=== PATIENT | female | born 1955 | race Hispanic/Latino ===

== ENCOUNTER 2018-01-19 12:27 | Inpatient (IN) | payer SELFPAY ==
[~2018-01-19] VITALS: Ht 160 cm; Wt 109.3 kg
[2018-01-19 13:16] LABS: HEMATOCRIT 33.5 % (36.0-46.0); HEMOGLOBIN 10.1 G/DL (11.9-15.5); MCH 21.8 PG (29.0-34.0); MCHC 30.1 G/DL (30.0-36.0); MCV 72.2 FL (83-99); PLATELET COUNT 595 K/uL (156-360); RBC DIS.WIDTH-SD 43.8 % (39-53); RED BLOOD COUNT 4.64 M/uL (3.80-5.20); WHITE BLOOD COUNT 10.2 K/uL (4.1-10.2)
[2018-01-19 13:22] LABS: CHLORIDE 101 mEq/L (99-109); POTASSIUM 3.9 mEq/L (3.7-5.4); SODIUM 138 mEq/L (136-147)
[2018-01-19 13:24] LABS: GLUCOSE 294 mg/dL (70-99)
[2018-01-19 13:28] LABS: CREATININE 0.8 mg/dL (0.6-1.3); GFR ESTIMATE (CALCULATED) > 59 mL/min/; UREA NITROGEN (BUN) 17 mg/dL (9-23)
[2018-01-19 13:32] LABS: TROP-I INTERPRETATION NEGATIVE; TROPONIN-I < 0.01 ng/mL (0.0-0.30)
[2018-01-19 16:08] LABS: TROP-I INTERPRETATION NEGATIVE; TROPONIN-I < 0.01 ng/mL (0.0-0.30)
[2018-01-19] MEDS ORDERED: VITAMIN E400 UNIT PO (17:50)
[2018-01-19] MEDS ORDERED: VITAMIN B-121000 MC3 PO (17:51)
[2018-01-19] MEDS ORDERED: VITAMIN D31000 UNI2 PO (17:51)
[2018-01-19] MEDS ORDERED: ASCORBIC ACID500 M3 PO (17:51)
[2018-01-19] MEDS ORDERED: VITAMIN A10000 UNIT PO (17:52)
[2018-01-19] MEDS ORDERED: GLUCOSAMINE &1 EAC1 PO (17:52)
[2018-01-19] MEDS ORDERED: EXCEDRIN MIGRA1 EAC3 PO (17:53)
[2018-01-19] MEDS ORDERED: OMEGA-31000 M1 PO (17:53)
[2018-01-19] MEDS ORDERED: ADVAIR HFA120 INHAL2 IH (17:53)
[2018-01-19] MEDS ORDERED: NEOSPORIN + P28.3 GM TP (17:54)
[2018-01-19] MEDS ORDERED: ADVIL200 MG PO (17:54)
[2018-01-19] MEDS ORDERED: EMETROL ORAL S236 ML PO (17:55)
[2018-01-19] MEDS ORDERED: ZANTAC150 MG PO (17:55)
[2018-01-19] MEDS ORDERED: GLUCOPHAGE500 MG PO (17:56)
[2018-01-19] MEDS ORDERED: TRESIBA FL100 UNIT/1 SC (17:56)
[2018-01-19] MEDS ORDERED: COZAAR50 MG PO (17:56)
[2018-01-19] MEDS ORDERED: SPIRIVA1 INHALATI IH (17:57)
[2018-01-19] MEDS ORDERED: GLUCOTROL5 MG PO (17:57)
[2018-01-19] MEDS ORDERED: DULERA 100 MCG/13 GM IH (17:57)
[2018-01-19] MEDS ORDERED: VENTOLIN HFA18 GM IH (17:57)
[2018-01-19] MEDS ORDERED: BENGAY GREASELE57 GM TP (17:58)
[2018-01-19] MEDS ORDERED: SALONPAS PATCH1 EAC1 TD (17:58)
[2018-01-19] MEDS ORDERED: CLARITIN,ALAVAR10 MG PO (17:59)
[2018-01-19 18:52] LABS: ALBUMIN 3.2 g/dL (3.2-4.8)
[2018-01-19 18:55] LABS: TOTAL PROTEIN 6.2 g/dL (6.4-8.3)
[2018-01-19 18:57] LABS: TOTAL BILIRUBIN 0.3 mg/dL (0.0-1.0)
[2018-01-19 18:58] LABS: ALKALINE PHOSPHATASE 69 IU/L (3-129)
[2018-01-19 19:00] LABS: AST (GOT) 13 IU/L (2-34); DIRECT BILIRUBIN 0.2 mg/dL (0.0-0.3)
[2018-01-19 19:01] LABS: ALT (GPT) 3 IU/L (3-49)
[2018-01-19 19:10] LABS: APPEARANCE CLEAR ((CLEAR)); BILIRUBIN NEGATIVE; BLOOD NEGATIVE; COLOR YELLOW ((YELLOW)); GLUCOSE (STRIP) >=500; KETONES NEGATIVE; LEUKOCYTES SMALL; NITRITE NEGATIVE; PROTEIN (STRIP) 30; SPECIFIC GRAVITY 1.021 (1.000-1.030); UROBILINOGEN 0.2 MG/DL (0.2-1.0)
[2018-01-19 19:15] LABS: BACTERIA NONE SEEN /HPF; EPITHELIAL CELLS RARE /HPF; MUCUS TRACE /LPF; RED BLOOD CELLS 0-5 /HPF (0-5); UCUL ADDED? YES
[2018-01-19 22:09] VITALS: BP 148/84
[2018-01-19 22:31] LABS: TROP-I INTERPRETATION NEGATIVE; TROPONIN-I < 0.01 ng/mL (0.0-0.30)
[2018-01-19 22:35] LABS: IRON 17 MCG/DL (35-150); TRANSFERRIN (TIBC) 303.9 mg/dL (215-380); TRANSFERRIN SATUR. 6 % (20-55)
[2018-01-19 22:53] LABS: FERRITIN 7 NG/ML (10-291)
[2018-01-19 23:46] VITALS: BP 149/83
[2018-01-20 04:17] VITALS: BP 142/69
[2018-01-20 07:08] LABS: HEMATOCRIT 29.9 % (36.0-46.0); HEMOGLOBIN 8.6 G/DL (11.9-15.5); MCH 21.4 PG (29.0-34.0); MCHC 28.8 G/DL (30.0-36.0); MCV 74.6 FL (83-99); PLATELET COUNT 490 K/uL (156-360); RBC DIS.WIDTH-SD 45.7 % (39-53); RED BLOOD COUNT 4.01 M/uL (3.80-5.20); WHITE BLOOD COUNT 7.1 K/uL (4.1-10.2)
[2018-01-20 07:24] LABS: TROP-I INTERPRETATION NEGATIVE; TROPONIN-I < 0.01 ng/mL (0.0-0.30)
[2018-01-20 07:30] LABS: CHLORIDE 107 MEQ/L (99-109); CREATININE 0.6 MG/DL (0.6-1.3); GFR ESTIMATE (CALCULATED) > 59 mL/min/; GLUCOSE 279 mg/dL (70-99); SODIUM 141 MEQ/L (136-147); UREA NITROGEN (BUN) 13 mg/dL (9-23)
[2018-01-20 08:00] VITALS: BP 124/61
[2018-01-20 12:00] VITALS: BP 146/77
[2018-01-20 16:02] VITALS: BP 160/84
[2018-01-20 20:10] VITALS: BP 154/78
[2018-01-20 23:55] VITALS: BP 123/67
[2018-01-21 03:27] VITALS: BP 137/77
[2018-01-21 06:27] LABS: HEMATOCRIT 27.8 % (36.0-46.0); MCH 20.9 PG (29.0-34.0); MCHC 28.8 G/DL (30.0-36.0); MCV 72.8 FL (83-99); PLATELET COUNT 439 K/uL (156-360); RBC DIS.WIDTH-CV 16.7 % (11.8-14.6); RED BLOOD COUNT 3.82 M/uL (3.80-5.20); WHITE BLOOD COUNT 6.3 K/uL (4.1-10.2)
[2018-01-21 07:00] VITALS: BP 112/90
[2018-01-21] MEDS ORDERED: FERROUS SULFAT325 MG PO (08:07)
[2018-01-21] MEDS ORDERED: CEFDINIR300 MG PO (08:10)
[2018-01-21 10:17] LABS: STOOL OCCULT BLD 1ST SPECIMEN POSITIVE
[2018-01-21 11:10] VITALS: BP 136/90
[2018-01-21 12:02] LABS: HEMATOCRIT 28.2 % (36.0-46.0); HEMOGLOBIN 8.3 G/DL (11.9-15.5); MCV 73.2 FL (83-99)
[2018-01-21 15:56] VITALS: BP 151/66
== END 2018-01-21 18:34 | disposition home or self-care (01) | DRG 871 ==
LOC: EME 12:27 → 5SOUTH 19:48 → EDOF 19:48 → ENRESERV 19:49 → 5SOUTH 21:38 → ENRESERV 01-20 03:16 → CANRESERV 01-20 03:16 → 5SOUTH 01-21 18:34
PROVIDERS: Hospitalist; Nurse Practitioner Family; Physician Assistant Medical
DX: A41.9 Sepsis, unspecified organism (principal); R65.20 Severe sepsis without septic shock; J18.9 Pneumonia, unspecified organism; E86.0 Dehydration; E87.2 Acidosis; D50.9 Iron deficiency anemia, unspecified; E11.9 Type 2 diabetes mellitus without complications; E66.01 Morbid (severe) obesity due to excess calories; I10 Essential (primary) hypertension; G89.29 Other chronic pain; M48.00 Spinal stenosis, site unspecified; F32.9 Major depressive disorder, single episode, unspecified; Z68.41 Body mass index [BMI] 40.0-44.9, adult; Z87.891 Personal history of nicotine dependence; Z23 Encounter for immunization
CPT/HCPCS: 71046; 71275; 74177; 80048; 80076; 81003; 82272; 82607; 82728; 82948; 83540; 83605; 84466; 84484; 85014; 85018; 85027; 87040; 87086; 87502; 90686; 93005; 94640; 94640 76; 99202; 99281; 99285; J0696; J1644; J1815; J1885; J7030

== ENCOUNTER → 2018-03-31 | Outpatient (CLI) | payer OTHER ==
[~2018-03-31] VITALS: Ht 160 cm; Wt 104.8 kg
[~2018-03-31] MED LIST: ADVAIR HFA120 INHAL2 IH; ADVIL200 MG PO; ASCORBIC ACID500 M3 PO; BENGAY GREASELE57 GM TP; CEFDINIR300 MG PO; CLARITIN,ALAVAR10 MG PO; COZAAR50 MG PO; DULERA 100 MCG/13 GM IH; EMETROL ORAL S236 ML PO; EXCEDRIN MIGRA1 EAC3 PO; FERROUS SULFAT325 MG PO; GLUCOPHAGE500 MG PO; GLUCOSAMINE &1 EAC1 PO; GLUCOTROL5 MG PO; NEOSPORIN + P28.3 GM TP; OMEGA-31000 M1 PO; SALONPAS PATCH1 EAC1 TD; SPIRIVA1 INHALATI IH; TRESIBA FL100 UNIT/1 SC; VENTOLIN HFA18 GM IH; VITAMIN A10000 UNIT PO; VITAMIN B-121000 MC3 PO; VITAMIN D31000 UNI2 PO; VITAMIN E400 UNIT PO; ZANTAC150 MG PO
== END | disposition home or self-care (01) ==
LOC: AMB 07:52
PROVIDERS: Internal Medicine Gastroenterology
DX: Z12.11 Encounter for screening for malignant neoplasm of colon (principal); C18.7 Malignant neoplasm of sigmoid colon; D12.2 Benign neoplasm of ascending colon; D12.0 Benign neoplasm of cecum; K64.4 Residual hemorrhoidal skin tags; K64.8 Other hemorrhoids; K44.9 Diaphragmatic hernia without obstruction or gangrene; K20.9 Esophagitis, unspecified; K29.70 Gastritis, unspecified, without bleeding; R10.13 Epigastric pain; E11.9 Type 2 diabetes mellitus without complications; I10 Essential (primary) hypertension; Z83.3 Family history of diabetes mellitus; Z87.891 Personal history of nicotine dependence
CPT/HCPCS: 82948; 88305; 88342 TC; J1200; J3010

== ENCOUNTER → 2018-04-26 | Outpatient (CLI) | payer OTHER | END | disposition home or self-care (01) | LOC: RAD 08:24 | DX: K76.0 Fatty (change of) liver, not elsewhere classified (principal); R16.0 Hepatomegaly, not elsewhere classified; N63.14 Unspecified lump in the right breast, lower inner quadrant; I25.10 Atherosclerotic heart disease of native coronary artery without angina pectoris; I70.0 Atherosclerosis of aorta; N28.9 Disorder of kidney and ureter, unspecified; M51.36 Other intervertebral disc degeneration, lumbar region; Q43.3 Congenital malformations of intestinal fixation; Z90.49 Acquired absence of other specified parts of digestive tract; R05 Cough | CPT/HCPCS: 71260; 74177 ==

== ENCOUNTER → 2018-05-25 | Outpatient (CLI) | payer OTHER | END | disposition home or self-care (01) | LOC: EKG 09:30 | DX: I07.1 Rheumatic tricuspid insufficiency (principal); I51.9 Heart disease, unspecified; R94.39 Abnormal result of other cardiovascular function study; I10 Essential (primary) hypertension; E11.9 Type 2 diabetes mellitus without complications; Z87.891 Personal history of nicotine dependence; Z82.49 Family history of ischemic heart disease and other diseases of the circulatory system; R06.02 Shortness of breath; R07.9 Chest pain, unspecified | CPT/HCPCS: 78452; 93017; 93306; A9500; J2785 ==

== ENCOUNTER 2018-06-01 23:53 | Inpatient (IN) | payer OTHER ==
[~2018-06-01] VITALS: Ht 160 cm; Wt 100.7 kg
[~2018-06-01 23:53] MED LIST changes: +LOPRESSOR25 MG PO
[2018-06-02 09:18] VITALS: BP 103/63
[2018-06-02 09:46] LABS: INTER. NORMALIZED RATIO 1.2
[2018-06-02 09:49] LABS: PTT 29.2 SEC (25-37)
[2018-06-02 23:58] VITALS: BP 136/72
[2018-06-03 03:13] VITALS: BP 124/60
[2018-06-03 06:22] LABS: HEMATOCRIT 28.2 % (36.0-46.0); HEMOGLOBIN 8.5 G/DL (11.9-15.5); MCH 23.4 PG (29.0-34.0); MCHC 30.1 G/DL (30.0-36.0); MCV 77.5 FL (83-99); PLATELET COUNT 447 K/uL (156-360); RBC DIS.WIDTH-CV 14.2 % (11.8-14.6); RED BLOOD COUNT 3.64 M/uL (3.80-5.20); WHITE BLOOD COUNT 11.5 K/uL (4.1-10.2)
[2018-06-03 06:48] LABS: CHLORIDE 103 MEQ/L (99-109); CREATININE 0.7 MG/DL (0.6-1.3); GFR ESTIMATE (CALCULATED) > 59 mL/min/; GLUCOSE 186 mg/dL (70-99); POTASSIUM 4.7 MEQ/L (3.7-5.4); SODIUM 139 MEQ/L (136-147); UREA NITROGEN (BUN) 8 mg/dL (9-23)
[2018-06-03 08:09] VITALS: BP 168/81
[2018-06-03 12:00] VITALS: BP 102/61
[2018-06-03 16:17] VITALS: BP 125/57
[2018-06-03 20:10] VITALS: BP 16/58
[2018-06-04] VITALS (7 sets, daily range): BP systolic 105–120; BP diastolic 55–81
[2018-06-04 07:22] LABS: HEMATOCRIT 28.6 % (36.0-46.0); HEMOGLOBIN 8.7 G/DL (11.9-15.5); MCH 23.6 PG (29.0-34.0); MCHC 30.4 G/DL (30.0-36.0); MCV 77.5 FL (83-99); PLATELET COUNT 442 K/uL (156-360); RBC DIS.WIDTH-CV 14.6 % (11.8-14.6); RBC DIS.WIDTH-SD 41.2 % (39-53); RED BLOOD COUNT 3.69 M/uL (3.80-5.20); WHITE BLOOD COUNT 12.3 K/uL (4.1-10.2)
[2018-06-04 07:46] LABS: CHLORIDE 101 MEQ/L (99-109); CREATININE 0.7 MG/DL (0.6-1.3); GFR ESTIMATE (CALCULATED) > 59 mL/min/; GLUCOSE 155 mg/dL (70-99); POTASSIUM 4.2 MEQ/L (3.7-5.4); SODIUM 138 MEQ/L (136-147); UREA NITROGEN (BUN) 8 mg/dL (9-23)
[2018-06-05 04:19] VITALS: BP 116/62
[2018-06-05 07:16] LABS: HEMATOCRIT 29.8 % (36.0-46.0); MCH 23.4 PG (29.0-34.0); MCHC 30.2 G/DL (30.0-36.0); MCV 77.4 FL (83-99); PLATELET COUNT 447 K/uL (156-360); RBC DIS.WIDTH-CV 14.5 % (11.8-14.6); RBC DIS.WIDTH-SD 40.9 % (39-53); RED BLOOD COUNT 3.85 M/uL (3.80-5.20); WHITE BLOOD COUNT 11.7 K/uL (4.1-10.2)
[2018-06-05 07:37] LABS: CHLORIDE 100 MEQ/L (99-109); CREATININE 0.6 MG/DL (0.6-1.3); GFR ESTIMATE (CALCULATED) > 59 mL/min/; GLUCOSE 151 mg/dL (70-99); SODIUM 140 MEQ/L (136-147); UREA NITROGEN (BUN) 11 mg/dL (9-23)
[2018-06-05 08:03] VITALS: BP 118/66
[2018-06-05 11:19] VITALS: BP 126/87
[2018-06-05 15:23] VITALS: BP 117/59
[2018-06-05 19:15] VITALS: BP 117/58
[2018-06-05 23:35] VITALS: BP 107/55
[2018-06-06 06:11] LABS: HEMATOCRIT 28.1 % (36.0-46.0); HEMOGLOBIN 8.5 G/DL (11.9-15.5); MCH 23.5 PG (29.0-34.0); MCHC 30.2 G/DL (30.0-36.0); MCV 77.8 FL (83-99); PLATELET COUNT 473 K/uL (156-360); RBC DIS.WIDTH-CV 14.6 % (11.8-14.6); RBC DIS.WIDTH-SD 41.1 % (39-53); RED BLOOD COUNT 3.61 M/uL (3.80-5.20); WHITE BLOOD COUNT 10.3 K/uL (4.1-10.2)
[2018-06-06 06:39] LABS: CHLORIDE 101 MEQ/L (99-109); CREATININE 0.6 MG/DL (0.6-1.3); GFR ESTIMATE (CALCULATED) > 59 mL/min/; GLUCOSE 145 mg/dL (70-99); POTASSIUM 4.3 MEQ/L (3.7-5.4); SODIUM 135 MEQ/L (136-147); UREA NITROGEN (BUN) 12 mg/dL (9-23)
[2018-06-06 08:21] VITALS: BP 119/56
[2018-06-06 16:01] VITALS: BP 107/57
[2018-06-06 19:23] VITALS: BP 103/54
[2018-06-07 00:02] VITALS: BP 127/71
[2018-06-07 03:57] VITALS: BP 120/68
[2018-06-07 06:09] LABS: HEMATOCRIT 25.6 % (36.0-46.0); HEMOGLOBIN 7.8 G/DL (11.9-15.5); MCH 23.5 PG (29.0-34.0); MCHC 30.5 G/DL (30.0-36.0); MCV 77.1 FL (83-99); PLATELET COUNT 437 K/uL (156-360); RBC DIS.WIDTH-CV 14.6 % (11.8-14.6); RBC DIS.WIDTH-SD 40.6 % (39-53); RED BLOOD COUNT 3.32 M/uL (3.80-5.20); WHITE BLOOD COUNT 8.9 K/uL (4.1-10.2)
[2018-06-07 06:33] LABS: CHLORIDE 103 MEQ/L (99-109); CREATININE 0.5 MG/DL (0.6-1.3); GFR ESTIMATE (CALCULATED) > 59 mL/min/; GLUCOSE 157 mg/dL (70-99); POTASSIUM 3.9 MEQ/L (3.7-5.4); SODIUM 138 MEQ/L (136-147); UREA NITROGEN (BUN) 7 mg/dL (9-23)
[2018-06-07 07:44] VITALS: BP 120/59
[2018-06-07] MEDS ORDERED: COLACE100 MG PO (12:42)
[2018-06-07] MEDS ORDERED: ONDANSETRON HCL8 MG PO (12:42)
[2018-06-07] MEDS ORDERED: TRAMADOL HCL50 MG PO (12:42)
[2018-06-07] MEDS ORDERED: LOVENOX40 MG/0.4 SC ×2 (12:58→15:24)
[2018-06-07] MEDS ORDERED: OMEPRAZOLE20 MG PO (12:58)
[2018-06-07] MEDS ORDERED: HEPARIN SO5000 UNIT3 SC (14:20)
[2018-06-07] MEDS ORDERED: PROMETHAZINE HC50 M1 PO (14:20)
[2018-06-07 15:21] VITALS: BP 125/58
[2018-06-07 23:57] VITALS: BP 98/65
[2018-06-08 00:03] VITALS: BP 111/59
[2018-06-08 08:11] VITALS: BP 123/73
== END 2018-06-08 10:26 | disposition home or self-care (01) | DRG 330 ==
LOC: ENRESERV 23:53 → 2SOUTH 06-02 03:37 → 2EAST 06-02 08:39 → 2SOUTH 06-02 08:39 → ENRESERV 06-02 18:11 → 2EAST 06-02 19:54
PROVIDERS: Surgery
DX: C18.7 Malignant neoplasm of sigmoid colon (principal); N99.4 Postprocedural pelvic peritoneal adhesions; J45.20 Mild intermittent asthma, uncomplicated; K76.0 Fatty (change of) liver, not elsewhere classified; K74.69 Other cirrhosis of liver; R59.9 Enlarged lymph nodes, unspecified; Q43.3 Congenital malformations of intestinal fixation; E66.9 Obesity, unspecified; Z68.39 Body mass index [BMI] 39.0-39.9, adult; E11.9 Type 2 diabetes mellitus without complications; D50.9 Iron deficiency anemia, unspecified; I10 Essential (primary) hypertension; K21.9 Gastro-esophageal reflux disease without esophagitis; K44.9 Diaphragmatic hernia without obstruction or gangrene; M19.90 Unspecified osteoarthritis, unspecified site; G89.29 Other chronic pain; M54.41 Lumbago with sciatica, right side; Z87.891 Personal history of nicotine dependence; Z79.82 Long term (current) use of aspirin; Z79.84 Long term (current) use of oral hypoglycemic drugs
CPT/HCPCS: 80048; 82948; 85027; 85610; 85730; 87641; 88305; 88309; 94799; J0131; J0330; J1100; J1170; J1644; J1815; J2250; J3010; P9045; S0028; S0074